=== PATIENT | male | born 1995 | race African-American/Black ===

== ENCOUNTER 2020-09-01 17:55 | Emergency (ER) | payer BC ==
[~2020-09-01] VITALS: Ht 177.8 cm; Wt 74.4 kg
[2020-09-01 17:57] VITALS: BP 142/88
--- NOTE | 2020-09-01 18:07 | NUR ---
PT CAME IN WITH RIGHT SHOUDLER DEFORMITY AND PAIN AFTER HIS [employer] COMPETITION TODAY. "ITS OUT. ITS HAPPENED BEFORE. USUALLY IT GOES RIGHT BACK IN ON ITS OWN." CMS INTACT. PT RESTING IN [facility].
--- NOTE | 2020-09-01 19:05 | NUR ---
Report received from HOLLIS Butterfield. This RN to assume care. Awaiting xray at this time.
== END 2020-09-01 19:52 | disposition home or self-care (01) ==
LOC: ED 19:44
DX: S43.314A Dislocation of right scapula, initial encounter (principal); X58.XXXA Exposure to other specified factors, initial encounter; Y93.89 Activity, other specified; Y92.328 Other athletic field as the place of occurrence of the external cause; Y99.8 Other external cause status
CPT/HCPCS: 23650; 99284